=== PATIENT | female | born 1985 | race Caucasian/White ===

== ENCOUNTER 2019-09-16 07:11 | Emergency (ER) | payer OTHER ==
[~2019-09-16] VITALS: Ht 144.8 cm; Wt 60.8 kg
[2019-09-16 07:13] VITALS: BP 97/59
--- NOTE | 2019-09-16 07:17 | NUR ---
PT AMB TO BED 8 WITH STEADY GAIT Addendum: 09/16/19 at 0718 by [facility] TAKEN TO BED 07.
--- NOTE | 2019-09-16 07:20 | NUR ---
BIB SELF C/O OPEN WOUND TO LEFT BREAST & PAIN X 1 MONTH. DENIES TRAUMA. PATIENT STATES PAIN OF 10/10 AT THIS TIME. PATIENT POSITIONED FOR COMFORT; HOB ELEVATED; BEDRAILS UP X1; BED DOWN. ER MD MADE AWARE OF PT STATUS.
--- NOTE | 2019-09-16 07:57 | NUR ---
DR JIMÉNEZ AT BEDSIDE
[2019-09-16] MEDS ORDERED: NACL 0.9% 1,000 ML IV ONE (08:30)
--- NOTE | 2019-09-16 08:39 | NUR ---
IV established to right ac 20 gauge. Blood drawn and sent to lab.
[2019-09-16] MEDS ORDERED: GABA100C PO (08:44)
[2019-09-16] MEDS ORDERED: SULF-59 PO (08:44)
[2019-09-16] MEDS ORDERED: IBUP-2213 PO (08:44)
[2019-09-16] MEDS ORDERED: DOXY100C9 PO (08:44)
--- NOTE | 2019-09-16 08:53 | NUR ---
X-Ray at bedside.
[2019-09-16 08:59] LABS: BASOPHILS # (AUTO) 0.1 K/uL (0.00-0.22); BASOPHILS % (AUTO) 0.8 % (0.0-2.0); EOSINOPHILS # (AUTO) 0.4 K/uL (0-0.4); EOSINOPHILS % (AUTO) 4.2 % (0.0-4.0); HEMATOCRIT 37.5 % (36-48); HEMOGLOBIN 12.6 g/dL (12.0-16.0); LYMPHOCYTES # (AUTO) 2.3 K/uL (2.5-16.5); LYMPHOCYTES % (AUTO) 23.9 % (20.5-51.1); MEAN CORPUSCULAR HEMOGLOBIN 29 pg (27-31); MEAN CORPUSCULAR HGB CONC 34 g/dL (33-37); MEAN CORPUSCULAR VOLUME 86.3 fL (80-94); MONOCYTES # (AUTO) 0.6 K/uL (0.8-1.0); MONOCYTES % (AUTO) 6.4 % (1.7-9.3); NEUTROPHILS # (AUTO) 6.3 K/uL (1.8-7.7); NEUTROPHILS % (AUTO) 64.7 % (42.2-75.2); PLATELET COUNT (AUTO) 367 K/uL (140-450); RED BLOOD CELL COUNT(AUTO) 4.35 MIL/uL (4.20-5.40); RED CELL DISTRIBUTION WIDTH 12.7 % (11.6-13.7); WHITE BLOOD COUNT (AUTO) 9.8 K/uL (4.8-10.8)
[2019-09-16 09:11] LABS: PROTHROMBIN TIME 10.1 secs (10.8-13.4)
[2019-09-16 09:14] LABS: ANION GAP 11.1 (8-16); POTASSIUM 4.1 mmol/L (3.5-5.1)
[2019-09-16 09:15] LABS: CREATININE 0.6 mg/dL (0.6-1.3)
[2019-09-16 09:25] LABS: TOTAL BILIRUBIN 0.3 mg/dL (0.0-1.0)
--- NOTE | 2019-09-16 09:25 | NUR ---
PTS FAMILY AT BEDSIDE
[2019-09-16 09:26] LABS: ALBUMIN 3.3 g/dL (3.4-5.0)
--- NOTE | 2019-09-16 10:19 | NUR ---
US AT BEDSIDE.
[2019-09-16 13:16] VITALS: BP 101/62
--- NOTE | 2019-09-16 13:16 | NUR ---
Patient discharged with v/s stable. Written and verbal after care instructions given and explained. Patient alert, oriented and verbalized understanding of instructions. Ambulatory with steady gait. All questions addressed prior to discharge. ID band removed. Patient advised to follow up with PMD. Rx of IBUPROFEN & CLINDAMYCIN given. Patient educated on indication of medication including possible reaction and side effects. Opportunity to ask questions provided and answered.
== END 2019-09-16 13:16 | disposition home or self-care (01) ==
LOC: MED 07:11
DX: N61.1 Abscess of the breast and nipple (principal); Z79.899 Other long term (current) drug therapy
CPT/HCPCS: 36415; 71045; 76641; 80053; 83880; 84484; 85025; 85610; 85730; 86886; 86900; 86901; 93005; 99284; Q0092; J7030